=== PATIENT | female | born 1965 | race Asian ===

== ENCOUNTER 2019-10-22 04:13 | Emergency (ER) | payer OTHER ==
[2019-10-22] MEDS ORDERED: ACETAMINOPHEN 1000 MG/100 ML VIAL (NON FORMULARY) IVPB ONE (04:23)
[2019-10-22] MEDS ORDERED: ACETAMINOPHEN INJECTION 100 ML IVPB ONE (04:23)
[2019-10-22] MEDS ORDERED: SODIUM CHLORIDE 0.9% 500 ML INFUS.BAG IV ONE (04:24)
--- NOTE | 2019-10-22 04:28 | PDOC ---
History of Present Illness - General Chief Complaint: Pain, Acute Stated Complaint: LUQ PAIN X 2 DAYS Time Seen by Provider: 10/22/19 04:23 History Source: Patient Exam Limitations: No Limitations - History of Present Illness Initial Comments: 10/22/19 04:25 Pt is holding her LUQ beneath her breast. She has taken nothing for pain. SHe is obese; she has no PMHx, and takes only meds for gastritis. She has a hx of GB and appy removeal; she visits her PMD and she had normal stress test 2 yrs ago. Pt has no fever and no ill contacts and no recent travel and no SOB and no DVT. She doesn't smoke, use alcohol or drugs. She has no allergies. No N/V/D and no dysuria. Pt tells me that she has been on the keto diet for 1 month. Is this a multiple visit Asthma Patient?: No Timing/Duration: 24 hours Severity: moderate Aspirin Received prior to arrival: Yes: no aspirin today Past History - Travel Traveled outside of the country in the last 30 days: No Close contact w/someone who was outside of country & ill: No - Past Medical History Allergies/Adverse Reactions: Allergies Allergy/AdvReac Type Severity Reaction Status Date / Time No Known Allergies Allergy Verified 10/22/19 04:14 Home Medications: Ambulatory Orders Metformin HCl [Glucophage] 500 mg PO BID 05/24/14 Omeprazole 10 mg PO DAILY 10/22/19 COPD: No Diabetes: Yes - Surgical History Abdominal Surgery: Yes Appendectomy: Yes Cholecystectomy: Yes - Psycho Social/Smoking Cessation Hx Smoking Status: No Smoking History: Never smoked Number of Cigarettes Smoked Daily: 0 Hx Alcohol Use: No Drug/Substance Use Hx: No Substance Use Type: None Review of Systems - Review of Systems Constitutional: Yes: Loss of Appetite Respiratory: No: Symptoms reported, See HPI, Cough, Orthopnea, Shortness of Breath, SOB with Exertion, SOB at Rest, Stridor, Wheezing, Productive cough, Hemoptysis, Other Cardiac (ROS): No: Symptoms Reported, See HPI, Chest Pain, Edema, Irregular Heart Rate, Lightheadedness, Palpitations, Syncope, Chest Tightness, Other ABD/GI: No: Symptoms Reported, See HPI, Abdominal Distended, Abd. Pain w/ defecation, Blood Streaked Bowels, Constipated, Diarrhea, Difficulty Swallowing , Nausea, Poor Appetite, Poor Fluid Intake, Rectal Bleeding, Vomiting, Indigestion, Abdominal cramping, Tarry Stools, Other : No: Symptoms Reported, See HPI, Burning, Dysuria, Discharge, Frequency, Flank Pain, Hematuria, Incontinence, Pain, Urgency, Testicular Mass, Testicular Swelling, Lesions, Testicular Pain, Other Musculoskeletal: No: Symptoms Reported, See HPI, Back Pain, Gout, Joint Pain, Joint Swelling, Muscle Pain, Muscle Weakness, Neck Pain, Joint Stiffness, Other Integumentary: No: Symptoms Reported, See HPI, Bruising, Change in Color, Change in Hair/Nails, Dryness, Erythema, Flushing, Lesions, Lumps, Pallor, Pruritus, Rash, Sweating, Other Neurological: No: Symptoms reported, See HPI, Headache, Numbness, Paresthesia, Pre-Existing Deficit, Seizure, Tingling, Tremors, Weakness, Unsteady Gait, Ataxia, Dizziness, Other Heart Score/ECG Review - History History: Slightly suspicious - Electrocardiogram EKG: Non specific repolarization disturbance - Age Age: 45-65 - Risk Factors Risk Factors Heart Score: Yes Hx Obesity Based on the list above the patient has:: 1-2 risk factors - Troponin Troponin: </= normal limit - Score Heart Score - Total: 3 - ECG Intrepretation Rhythm: Regular Rhythm - [place]: Normal - P and [place] Delta Wave(s) Present: No WPW: No - ST and T Early Repolarization: No Non Specific ST-T Wave changes: Yes - ECG Impressions Normal ECG: Yes Non-specific ST Elevation: No Ischemic Changes: Yes (inferior flat flipped T waves) Bradycardia: No Torsades deejay Pointes: No WPW: No ED Treatment Course - LABORATORY CBC & Chemistry Diagram: 10/22/19 04:30 10/22/19 04:30 Medical Decision Making - Medical Decision Making 10/22/19 04:28 Pt will get a CXR and abd XR. NSS and ofirmev running labs pending EKG done 10/22/19 05:14 Pt has air/fluid levels; obstructive pattern on FUA Abdomen CXR normal 10/22/19 07:06 fatty liver on Abd sono. CBC wbc elevated chem normalCT abd /pelvis pending Signed out to day ER doc Discharge - Discharge Information Problems reviewed: Yes Clinical Impression/Diagnosis: Chest pain Condition: Stable - Follow up/Referral Referrals: Az,Edwards, MD [Primary Care Provider] - - Patient Discharge Instructions - Post Discharge Activity
[2019-10-22 04:31] VITALS: BMI 39.0
[2019-10-22] MEDS ORDERED: morphine CARPU-JECT 2 MG/1 ML DISP.SYRIN IVPUSH ONE (04:41)
[2019-10-22] MEDS ORDERED: morphine SULFATE 4 MG/ML VIAL ONE (05:10)
[2019-10-22 05:38] LABS: BASO % 0.7 % (0-2.0); EOS % 9.8 % (0-4.5); HEMATOCRIT 37.8 % (32.4-45.2); HEMOGLOBIN 11.8 GM/dL (10.7-15.3); MCH 22.3 pg (25.7-33.7); MCHC 31.1 g/dl (32.0-36.0); MEAN CELL VOLUME 71.6 fl (80-96); MEAN PLT VOLUME 8.2 fl (7.5-11.1); MONO % 6.3 % (3.8-10.2); NEUT % 61.2 % (42.8-82.8); PLATELET COUNT 385 K/MM3 (134-434); RBC 5.29 M/mm3 (3.60-5.2); RDW 17.9 % (11.6-15.6); WHITE BLOOD COUNT 11.8 K/mm3 (4.0-10.0)
[2019-10-22 05:58] LABS: INR 0.99 (0.83-1.09); PROTHROMBIN TIME (PATIENT) 11.7 SEC (9.7-13.0)
[2019-10-22 06:21] LABS: ALBUMIN 3.3 g/dl (3.4-5.0); ALK PHOS 80 U/L (45-117); ANION GAP 7 MMOL/L (8-16); BILIRUBIN,TOTAL 0.4 mg/dL (0.2-1); BLOOD UREA NITROGEN 19.1 mg/dL (7-18); CALCIUM 8.9 mg/dL (8.5-10.1); CHLORIDE 107 mmol/L (98-107); CO2 25 mmol/L (21-32); CREATININE 0.6 mg/dL (0.55-1.3); GLUCOSE,RANDOM 179 mg/dL (74-106); POTASSIUM 4.4 mmol/L (3.5-5.1); SGOT/AST 27 U/L (15-37); SGPT/ALT 30 U/L (13-61); SODIUM 139 mmol/L (136-145); TOT PROT 6.2 g/dl (6.4-8.2)
--- NOTE | 2019-10-22 07:16 | PDOC ---
*Physical Exam - Vital Signs Last Vital Signs Temp Pulse Resp BP Pulse Ox 97.9 F 75 18 144/75 100 10/22/19 06:02 10/22/19 06:02 10/22/19 06:02 10/22/19 06:02 10/22/19 06:02 ED Treatment Course - LABORATORY CBC & Chemistry Diagram: 10/22/19 04:30 10/22/19 04:30 - ADDITIONAL ORDERS Additional order review: Laboratory Results 10/22/19 10/22/19 10/22/19 04:30 04:30 04:30 PT with INR 11.70 INR 0.99 Sodium Potassium Chloride Carbon Dioxide Anion Gap BUN Creatinine Est GFR (CKD-EPI)AfAm Est GFR (CKD-EPI)NonAf Random Glucose Calcium Total Bilirubin AST ALT Alkaline Phosphatase Creatine Kinase Troponin I Total Protein Albumin Lipase 182 Blood Type B POSITIVE Antibody Screen Negative 10/22/19 04:30 PT with INR INR Sodium 139 Potassium 4.4 Chloride 107 Carbon Dioxide 25 Anion Gap 7 L BUN 19.1 H Creatinine 0.6 Est GFR (CKD-EPI)AfAm 119.77 Est GFR (CKD-EPI)NonAf 103.34 Random Glucose 179 H Calcium 8.9 Total Bilirubin 0.4 AST 27 ALT 30 Alkaline Phosphatase 80 Creatine Kinase 114 Troponin I < 0.02 Total Protein 6.2 L Albumin 3.3 L Lipase Blood Type Antibody Screen 10/22/19 04:30 RBC 5.29 H MCV 71.6 L MCHC 31.1 L RDW 17.9 H MPV 8.2 Neutrophils % 61.2 Lymphocytes % 22.0 Monocytes % 6.3 Eosinophils % 9.8 H D Basophils % 0.7 - Medications Given in the ED: ED Medications Discontinued Medications Generic Name Dose Route Start Last Admin Trade Name Freq PRN Reason Stop Dose Admin Acetaminophen 1,000 mg 10/22/19 04:23 10/22/19 04:32 Ofirmev Injection - IVPB 10/22/19 04:24 1,000 mg ONCE ONE Administration Morphine Sulfate 2 mg 10/22/19 04:41 10/22/19 05:15 Morphine Injection - IVPUSH 10/22/19 04:42 2 mg ONCE ONE Administration Sodium Chloride 500 ml 10/22/19 04:24 10/22/19 04:32 Normal Saline - IV 10/22/19 04:25 500 ml ONCE ONE Administration Medical Decision Making - Medical Decision Making 10/22/19 09:57 CT of the abdomen shows no definite evidence of obstruction. There are air- fluid levels interspersed with normal bowel, probably a mild ileus from gastroenteritis. The patient also states that she has been on a "keto diet" for 1 month, has lost 10 pounds, but has had some intermittent abdominal pain and bloating since initiation. Labs reviewed and negative Patient is much improved after treatment. Pain has resolved. Nausea is resolved. There is been no vomiting or retching. Repeat abdomen examination reveals normal bowel sounds, soft, nontender, nondistended, without mass organomegaly. Patient discharged in no acute distress with son to follow-up as directed. To modify diet. Patient and son were informed of incidental findings on CT. Probable adrenal adenoma. Large noninflamed diverticulum. They agree to follow-up with primary physician to discuss these findings as directed. 10/22/19 10:09 Patient was also advised to hold her metformin for [address] examination. Discharge - Discharge Information Problems reviewed: Yes Clinical Impression/Diagnosis: Viral gastroenteritis, Dyspepsia Condition: Improved Disposition: HOME - Admission No - Additional Discharge Information Prescriptions: Acetaminophen W/ Codeine #3 [Tylenol # 3] 1 - 2 combo PO Q4H PRN #14 tablet MDD 6 PRN Reason: Pain Ondansetron [Zofran *Odt*] 4 mg SL TID PRN #20 od.tablet PRN Reason: Nausea And/Or Vomiting Simethicone [Gas-X Ultra Strength] 180 mg PO TID PRN #20 capsule PRN Reason: Gas and/or bloating - Follow up/Referral Referrals: Jerry Bernardo MD [Primary Care Provider] - 3 days Myles Benton MD [Staff Physician] - 1 week - Patient Discharge Instructions Patient Printed Discharge Instructions: DI for Viral Gastroenteritis -- Adult Additional Instructions: Rest and fluids. No solid food, heavy food, until symptoms resolve. Medications as directed for excess acid, nausea, and gas. Return to ER if symptoms worsen, otherwise follow-up primary physician 2 days. Consider seeing crime scene examiner for further evaluation as recommended. Discuss incidental findings on CT scan with primary physician. These are 1) large diverticulum and 2) probable adrenal adenoma. These findings are probably not responsible for your present symptoms, but your primary physician should be aware of them and they should be monitored and you should be followed up adequately in this regard. Do not take your metformin for [address] scan. There can be medication interactions with the CT dye. - Post Discharge Activity
[2019-10-22 10:49] VITALS: BP 124/68; PULSE 70; TEMP 98.3
--- NOTE | 2019-10-27 14:36 | EKG ---
Test Reason : Blood Pressure : / mmHG Vent. Rate : 074 BPM Atrial Rate : 074 BPM P-R Int : 132 ms QRS Dur : 086 ms QT Int : 402 ms P-R-T Axes : -22 -22 003 degrees QTc Int : 446 ms POOR DATA QUALITY, INTERPRETATION MAY BE ADVERSELY AFFECTED NORMAL SINUS RHYTHM NORMAL ECG Confirmed by MD JOANN, RAFAEL ([id number]) on 10/27/2019 2:36:00 PM Referred By: DR FLAHERTY Confirmed By:RAFAEL DAVID MD
== END 2019-10-22 10:52 | disposition home or self-care (01) ==
LOC: FER 04:13
PROC: 3E033NZ Introduction of Analgesics, Hypnotics, Sedatives into Peripheral Vein, Percutaneous Approach (ICD-10-PCS; principal; 2019-10-22)
PROC: 3E0337Z Introduction of Electrolytic and Water Balance Substance into Peripheral Vein, Percutaneous Approach (ICD-10-PCS; 2019-10-22)
DX: R07.9 Chest pain, unspecified (principal); E11.9 Type 2 diabetes mellitus without complications
CPT/HCPCS: 36415; 71046-TC-FY; 74019-TC-FY; 74177-TC; 76705-TC; 80053; 82550; 83690; 84484; 85025; 85610; 86850; 86900; 86901; 93005; 96361; 96374; 96375; 99282-25; J0131; Q9967